=== PATIENT | male | born 2000 | race Caucasian/White ===

== ENCOUNTER 2022-03-11 14:11 | Inpatient (IN) | payer BC ==
[2022-03-11 14:47] LABS: #Monocytes 0.6 10x3/uL (0.0-1.1); #Neutrophils 4.6 10x3/uL (1.5-8.4); %Basophils 0.2 % (0.0-2.0); %Lymphocytes 19.3 % (18.0-47.0); %Monocytes 8.8 % (0.0-10.0); %Neutrophils 71.4 % (40.0-75.0); Hemoglobin 13.7 g/dL (13.5-17.5); Mean Corpuscular HGB CONC 35.1 g/dL (32.0-36.0); Mean Corpuscular Hemoglobin 29.4 pg (27.0-33.0); Mean Corpuscular Volume 83.7 fl (81.2-95.1); Mean Platelet Volume 8.8 fl (7.4-10.4); Platelet Count 190 10x3/uL (150-450); RBC Distribution Width 12.2 % (11.5-14.5); Red Blood Cell (RBC) Count 4.66 10x6/uL (4.32-5.72); White Blood Cell (WBC) Count 6.5 10x3/uL (3.5-10.5)
[2022-03-11] MEDS ORDERED: Acetaminophen 500 MG TAB ONE (14:56)
[2022-03-11 15:00] LABS: ALT (SGPT) 75 U/L (8-55); AST (SGOT) 71 U/L (5-34); Albumin 4.1 g/dL (3.5-5.0); Alkaline Phosphatase 70 U/L (40-110); Anion Gap 12 mmol/L (10-20); BUN (Urea Nitrogen) 12 mg/dL (8.9-20.6); Bilirubin, Total 0.6 mg/dL (0.2-1.2); Calc. Creatinine Clearance 0 mL/min (70-130); Calcium 9.2 mg/dL (7.8-10.44); Carbon Dioxide 23 mmol/L (22-29); Chloride 103 mmol/L (98-107); Estimated GFR 105; Globulin 3.1 g/dL (2.4-3.5); Glucose 117 mg/dL (70-105); Potassium 3.8 mmol/L (3.5-5.1); Protein, Total 7.2 g/dL (6.0-8.3); Sodium 134 mmol/L (136-145)
[2022-03-11 15:30] LABS: CKMB 0.7 ng/mL (0-6.6)
[2022-03-11 18:27] LABS: Troponin I 0.073 ng/mL (< 0.028)
[2022-03-11] MEDS ORDERED: Ondansetron PF 4 MG/2 ML Vial IVP PRN (18:45)
[2022-03-11] MEDS ORDERED: Ondansetron ODT 4 MG TAB PO PRN (18:45)
[2022-03-11 19:07] LABS: MONO NEGATIVE CONTROL ZONE White (Negative) (White); MONO POSITIVE CONTROL Pink Line (Positive) (PINK/RED); Mononucleosis NEGATIVE (NEGATIVE)
[2022-03-11 19:50] VITALS: BMI 38.0
[2022-03-11] MEDS: Sodium Chloride 0.9% 1,000 ML IV SCH (20:12)
[2022-03-11] MEDS: Famotidine 20 MG TAB PO SCH (20:12)
[2022-03-11 21:08] LABS: Troponin I 0.071 ng/mL (< 0.028)
[2022-03-12] MEDS: Acetaminophen 325 MG TAB PO PRN ×4 (00:13→23:30)
[2022-03-12] MEDS ORDERED: Ketorolac Tromethamine 30 MG/ML VIAL IVP SCH (01:45)
[2022-03-12] MEDS: Sodium Chloride 0.9% 1,000 ML IV SCH ×2 (05:58→17:20)
[2022-03-12 06:13] LABS: ALT (SGPT) 99 U/L (8-55); AST (SGOT) 91 U/L (5-34); Albumin 3.9 g/dL (3.5-5.0); Alkaline Phosphatase 72 U/L (40-110); Anion Gap 12 mmol/L (10-20); BUN (Urea Nitrogen) 9 mg/dL (8.9-20.6); Bilirubin, Total 0.6 mg/dL (0.2-1.2); Calc. Creatinine Clearance 220 mL/min (70-130); Calcium 8.8 mg/dL (7.8-10.44); Carbon Dioxide 24 mmol/L (22-29); Chloride 104 mmol/L (98-107); Estimated GFR 118; Globulin 3.1 g/dL (2.4-3.5); Glucose 107 mg/dL (70-105); Sodium 136 mmol/L (136-145)
[2022-03-12] MEDS: Famotidine 20 MG TAB PO SCH ×2 (10:05→20:39)
[2022-03-12 13:52] LABS: Bilirubin Neg (Negative); Blood, Urine 10 (Negative); Clarity Slightly Cloudy (Clear); Glucose, Urine (Dipstick) Normal (Negative); Ketone, Urine Negative (Negative); Leukocyte Negative (Negative); Nitrite Negative (Negative); Protein, Urine (Dipstick) 30 mg/dl (Neg-Trace); Specific Gravity, Urine 1.015 (1.002-1.036)
[2022-03-12 13:55] LABS: Urine Culture Reflex No No
[2022-03-12 14:01] LABS: Bacteria/HPF None Seen HPF (None Seen); RBC/HPF 0-3 HPF (0-3); Squamous Epithelial 0-3 HPF (0-3); WBC/HPF 0-3 HPF (0-3)
[2022-03-12 22:27] LABS: HBCM Index 0.25 S/CO (0-0.79); HBSAg Index 0.32 S/CO (0-0.99); Hep A IgM AB Non-Reactive (NonReactive); Hep A IgM S/CO 0.13 S/CO (0-0.79); Hep B Surf Ag Non-Reactive S/CO (NonReactive); Hep C IgG Ab Non-Reactive (NonReactive); Hep C Index 0.04 S/CO (0-0.79); Hepatitis B Core IgM Abs Non-Reactive (NonReactive)
[2022-03-12] MEDS ORDERED: Guaifenesin DM 100-10/5 ML UDCUP PO PRN (23:13)
[2022-03-13] MEDS: Sodium Chloride 0.9% 1,000 ML IV SCH ×3 (01:18→21:58)
[2022-03-13 06:54] LABS: #Monocytes 0.4 10x3/uL (0.0-1.1); #Neutrophils 2.4 10x3/uL (1.5-8.4); %Basophils 0.2 % (0.0-2.0); %Eosinophils 0.2 % (0.0-6.0); %Lymphocytes 31.1 % (18.0-47.0); %Monocytes 10.5 % (0.0-10.0); %Neutrophils 57.8 % (40.0-75.0); Mean Corpuscular Hemoglobin 28.8 pg (27.0-33.0); Mean Corpuscular Volume 84.7 fl (81.2-95.1); Mean Platelet Volume 9.4 fl (7.4-10.4); Platelet Count 128 10x3/uL (150-450); RBC Distribution Width 12.5 % (11.5-14.5); Red Blood Cell (RBC) Count 4.51 10x6/uL (4.32-5.72); White Blood Cell (WBC) Count 4.2 10x3/uL (3.5-10.5)
[2022-03-13 06:55] LABS: ALT (SGPT) 111 U/L (8-55); AST (SGOT) 79 U/L (5-34); Albumin 3.8 g/dL (3.5-5.0); Alkaline Phosphatase 69 U/L (40-110); Anion Gap 11 mmol/L (10-20); BUN (Urea Nitrogen) 7 mg/dL (8.9-20.6); Bilirubin, Total 0.5 mg/dL (0.2-1.2); CRP (Inflammatory) 11.35 mg/dL (= or < 0.5); Calc. Creatinine Clearance 238 mL/min (70-130); Calcium 9.1 mg/dL (7.8-10.44); Carbon Dioxide 24 mmol/L (22-29); Chloride 105 mmol/L (98-107); Estimated GFR 124; Globulin 3.2 g/dL (2.4-3.5); Glucose 97 mg/dL (70-105); Sodium 136 mmol/L (136-145)
[2022-03-13] MEDS: Famotidine 20 MG TAB PO SCH ×2 (10:47→19:53)
[2022-03-13] MEDS: Acetaminophen 325 MG TAB PO PRN (19:54)
[2022-03-14 05:23] LABS: ALT (SGPT) 86 U/L (8-55); AST (SGOT) 53 U/L (5-34); Albumin 3.8 g/dL (3.5-5.0); Alkaline Phosphatase 69 U/L (40-110); Anion Gap 12 mmol/L (10-20); BUN (Urea Nitrogen) 8 mg/dL (8.9-20.6); Bilirubin, Total 0.5 mg/dL (0.2-1.2); Calc. Creatinine Clearance 238 mL/min (70-130); Calcium 9.1 mg/dL (7.8-10.44); Carbon Dioxide 26 mmol/L (22-29); Chloride 104 mmol/L (98-107); Estimated GFR 124; Globulin 3.2 g/dL (2.4-3.5); Glucose 94 mg/dL (70-105); Potassium 3.9 mmol/L (3.5-5.1); Sodium 138 mmol/L (136-145)
[2022-03-14] MEDS: Sodium Chloride 0.9% 1,000 ML IV SCH (06:41)
[2022-03-14] MEDS: Famotidine 20 MG TAB PO SCH (08:25)
[2022-03-14 10:32] VITALS: BP 128/72; TEMP 98.9
[2022-03-16 13:13] LABS: ANA Symphony (Qualitative) Negative (Negative); ANA Symphony (Quantitative) 0.3 Ratio (< 0.7 Negative); dsDNA IgG Antibody 1.3 IU/mL (<10 Negative)
== END 2022-03-14 11:21 | disposition home or self-care (01) | DRG 596 ==
LOC: CSHERS 14:11 → CSHERHOLD 16:59 → INTOOBSV 16:59 → CSHTELE 19:12 → OBSVTOIN 03-14 09:08
PROVIDERS: ADMIT Family Medicine; ATTEND Internal Medicine
DX: L40.9 Psoriasis, unspecified (principal); T75.4XXA Electrocution, initial encounter; R77.8 Other specified abnormalities of plasma proteins; Z20.822 Contact with and (suspected) exposure to COVID-19; R79.89 Other specified abnormal findings of blood chemistry; M25.511 Pain in right shoulder
CPT/HCPCS: 36415; 71045; 80053; 80074; 81001; 82550; 82553; 83615; 84443; 84484; 85025; 85652; 86038; 86140; 86225; 86308; 87040; 87081; 87430; 87633; 87804; 93005; 93306; 94760; 96374; G0378; J1885; J7050; U0003; U0005